=== PATIENT | female | born 1925 | race Caucasian/White ===

== ENCOUNTER 2017-09-04 10:28 | Observation (INO) ==
--- NOTE | 2017-09-04 10:35 | Emergency Department Note ---
Disposition Clinical Impression: Chest pain, Elevated troponin Disposition: Admitted As Inpatient Condition: Good General Adult HPI - General Stated complaint: Left shoulder pain Time Seen by Provider: 09/04/17 10:31 - History of Present Illness Pain Scale: 0 - Related Data Home Medications Medication Instructions Recorded Confirmed Albuterol Sulfate [Ventolin Hfa] 2 puff IH Q4H PRN 09/04/17 09/04/17 Atorvastatin Calcium [Lipitor] 20 mg PO HS 09/04/17 09/04/17 Cholestyramine 1 pack PO BID 09/04/17 09/04/17 Levothyroxine [Synthroid] 75 mcg PO 0630 09/04/17 09/04/17 Lisinopril [Zestril] 10 mg PO DAILY 09/04/17 09/04/17 Metoprolol [Lopressor] 25 mg PO BID 09/04/17 09/04/17 Allergies Allergy/AdvReac Type Severity Reaction Status Date / Time amiodarone Allergy Rash Verified 08/19/17 18:10 Penicillins [PCN] Allergy Rash Verified 08/19/17 18:10 Past Medical History - Past Medical History Medical history: Reports: atrial fibrillation - Social History Smoking Status: Never smoker Smokeless Tobacco Status: No Alcohol use: Reports: none Course Vital Signs Temperature 99.2 F 09/04/17 10:29 Pulse Rate 81 09/04/17 10:29 Respiratory Rate 18 09/04/17 10:29 Blood Pressure 146/70 09/04/17 10:29 O2 Sat by Pulse Oximetry 94 09/04/17 10:29 Temperature 99.0 F 09/05/17 03:14 Pulse Rate 65 09/05/17 03:14 Respiratory Rate 14 09/05/17 03:14 Blood Pressure 133/65 09/05/17 03:14 O2 Sat by Pulse Oximetry 96 09/05/17 03:14 Oxygen Delivery Oxygen Delivery Room Air Medical Decision Making - Lab Data Result diagrams: 09/05/17 04:26 09/05/17 04:26 Lab Results 09/04/17 09/04/17 09/04/17 Range/Units 10:35 10:35 10:35 WBC 17.5 H (4.3-11.1) K/mcL RBC 4.52 (3.82-4.97) M/mcL Hgb 13.3 (11.5-15.4) g/dL Hct 41.9 (35.3-44.9) % MCV 92.7 (83.0-100.0) fL MCH 29.4 (28.0-33.3) pg MCHC 31.7 (31.6-35.5) g/dL RDW 14.1 (11.5-14.5) % Plt Count 218 (140-400) K/mcL MPV 10.3 (9.4-12.4) fL Immature Gran % 2.1 (0-4) % Seg Neutrophils % 80.2 % Lymphocytes % 8.0 % Monocytes % 9.0 % Eosinophils % 0.4 % Basophils % 0.3 % Neutrophils # 14.1 H (1.6-8.9) K/mcL Lymphocytes # 1.4 (0.6-4.6) K/mcL Monocytes # 1.6 H (0.0-1.3) K/mcL Eosinophils # 0.1 (0.0-0.6) K/mcL Basophils # 0.1 (0.0-0.2) K/mcL PT 11.6 (9.4-12.1) Seconds INR 1.1 Sodium 136 (136-145) mEq/L Potassium 3.9 (3.5-5.1) mEq/L Chloride 104 (98-107) mEq/L Carbon Dioxide 27 (23-29) mEq/L BUN 21 (8-23) mg/dL Creatinine 1.30 H (0.60-1.20) mg/dL Est GFR ( Amer) 47 L (> 60) Est GFR (Non-Af Amer) 39 L (> 60) BUN/Creatinine Ratio 16 (6-26) Glucose 134 H (70-105) mg/dL Calculated Osmolality 287 (280-300) Calcium 8.9 (8.6-10.3) mg/dL Total Bilirubin 1.0 (0.3-1.0) mg/dL AST 16 (13-39) Units/L ALT 11 (7-52) Units/L Alkaline Phosphatase 66 (34-104) Units/L Troponin I 0.04 H* (< 0.04) ng/mL Serum Total Protein 5.4 L (6.4-8.9) g/dL Albumin 3.5 (3.5-5.7) g/dL Globulin 1.9 L (2.4-3.5) g/dL Albumin/Globulin Ratio 1.8 (1.1-2.2) Lipase 42 (11-82) Units/L Attestation Statement - Attestation Attestation: I examined this patient and my medical decision-making was reviewed with the Resident Physician. I agree with the documented findings, disposition and treatment plan as described except to the extent set forth below. [id number] time provided The patient presents pain free. She did have a traumatic pain underneath her left posterior scapula which radiated anteriorly. She appears in no acute distress on arrival and was able to ambulate to the treatment area without symptoms. The patient was evaluated in conjunction with the resident physician
[2017-09-04] MEDS ORDERED: Aspirin 325 MG TABLET PO ONE (10:40)
--- NOTE | 2017-09-04 10:43 | Emergency Department Note ---
Disposition Clinical Impression: Elevated troponin Chest pain Qualifiers: Chest pain type: unspecified Qualified Code(s): R07.9 - Chest pain, unspecified Disposition: Admitted As Inpatient Condition: Good Referrals: Shreya Dexter CNP [Primary Care Provider] - Forms: ED Satisfaction Letter Time of Disposition: 11:42 Chest Pain HPI - General Chief Complaint: ED Chest Pain Stated Complaint: Left shoulder pain Time Seen by Provider: 09/04/17 10:31 Source: patient Mode of arrival: ambulatory Limitations: no limitations Vital Signs Reviewed: Yes Nursing Notes Reviewed: Yes - History of Present Illness HPI Narrative: Patient is an 89-year-old female with past medical history of A. fib, currently only taking aspirin 325 mg daily, previous history of colon cancer which is now in remission after chemotherapy and radiation, history of CT about 20 years ago that required one stent, hypertension, hyperlipidemia. She presents today due to left-sided chest and shoulder pain. Denies any falls. She states that it began suddenly around 5 AM, started in her left chest and shoulder and radiated down into her lower chest and around to her back. She also had radiation to her left jaw. This started out as a sharp sensation that progressively got worse over 5 hours. Patient said that the pain was worse with exertion and associated with some mild shortness of breath at that time. Denies any other sweating, nausea, vomiting, fevers, diarrhea, abdominal pain. She says that just prior to arriving by private vehicle, the pain went away. She estimates that she had this discomfort for about 5 hours in duration. She currently rates her pain a 0 out of 10. Severity scale (1-10): 0 - Related Data Home Medications Medication Instructions Recorded Confirmed Albuterol Inhaler 04/24/16 Aspirin 04/24/16 04/24/16 Atorvastatin 04/24/16 Levothyroxine 04/24/16 Lisinopril 04/24/16 Metoprolol Tartrate 04/24/16 Previous Rx's Medication Instructions Recorded Azithromycin [Zithromax] 250 - 500 mg PO DAILY #6 tablet 08/19/17 Guaifenesin [Mucinex] 1,200 mg PO BID PRN #30 tab.er.12h 08/19/17 methylPREDNISolone [Medrol] 4 mg PO DAILY #21 tablet 08/19/17 Allergies Allergy/AdvReac Type Severity Reaction Status Date / Time amiodarone Allergy Rash Verified 08/19/17 18:10 Penicillins [PCN] Allergy Rash Verified 08/19/17 18:10 All systems ED: reviewed and negative except as stated. Constitutional: Denies: fever Cardiovascular: Reports: chest pain. Denies: palpitations Respiratory: Reports: dyspnea. Denies: cough, wheezes Gastrointestinal: Denies: abdominal pain, nausea, vomiting, diarrhea Chest Pain PMH - Past Medical History Medical history: Reports: atrial fibrillation, hyperlipidemia, hypertension, other - Social History Smoking Status: Never smoker Alcohol use: Reports: none Physical Exam - General Limitations: no limitations General appearance: alert, in no apparent distress - Head Head exam: atraumatic, normocephalic, normal inspection - Eye Eye exam: Present: normal appearance, PERRL, EOMI - ENT ENT exam: normal exam, normal oropharynx, mucous membranes moist - Neck Neck exam: Present: normal inspection, full ROM, trachea midline - Chest Chest inspection: Present: normal inspection, symmetric chest wall rise. Absent : tenderness, rash - Respiratory Respiratory exam: Present: normal lung sounds bilaterally. Absent: respiratory distress, wheezes, stridor, accessory muscle use - Cardiovascular Cardiovascular exam: Present: regular rate, normal rhythm, normal heart sounds - Abdominal Exam Abdominal exam: Present: soft, Non-Tender. Absent: tenderness, distention, guarding, rebound, rigidity - Extremities Exam Extremities exam: Present: normal inspection, full ROM. Absent: tenderness, pedal edema - Neurological Exam Neurological exam: Present: alert, oriented X3 - Psychiatric Psychiatric exam: Present: normal affect, normal mood - Skin Skin exam: Present: warm, dry, intact, normal color Course Course Narrative: Patient has high risk factor for ACS. Patient has previous CT with stent placement, hypertension, hyperlipidemia, also has concerning history. Heart score is currently 5 assuming trop is negative. EKG was obtained and shows ST elevation in V1 and V2 with T-wave inversion. This was present on previous EKG on 03/19/2015, however, T wave inversion does appear deeper on this EKG. T wave inversion present in lead 3 as well, this was present on old EKG as well and is unchanged. Will also obtain posterior EKG for further assessment. We will also obtain chest x-ray, basic blood work, troponin level. Even if workup is negative, patient has concerning history and risk factors, will admit for trending troponins and further chest pain workup. 11:41 EKG showed no acute ST changes. Chest x-ray negative for any acute cardiopulmonary process. Troponin elevated 0.04. Patient was reevaluated again , continues to have no chest pain or shortness breath. We discussed admission for further care and trending troponins. She was happy and agreeable with this plan. Patient given aspirin. Not started on heparin at this time. Chest X-Ray 09/04/17 10:35 IMPRESSION: No acute cardiopulmonary process identified. D/ / Isael Washington MD / Isael Washington MD Interpreting Provider: Isael Washington MD Vital Signs Temperature 99.2 F 09/04/17 10:29 Pulse Rate 81 09/04/17 10:29 Respiratory Rate 18 09/04/17 10:29 Blood Pressure 146/70 09/04/17 10:29 O2 Sat by Pulse Oximetry 94 09/04/17 10:29 Temperature 99.2 F 09/04/17 10:35 Pulse Rate 81 09/04/17 10:35 Respiratory Rate 18 09/04/17 10:35 Blood Pressure 146/70 09/04/17 10:35 O2 Sat by Pulse Oximetry 94 09/04/17 10:35 Oxygen Delivery Oxygen Delivery Room Air Chest Pain - MDM Narrative Medical decision making narrative: Patient has high risk factor for ACS. Patient has previous CT with stent placement, hypertension, hyperlipidemia, also has concerning history. Heart score is currently 5 assuming trop is negative. EKG was obtained and shows ST elevation in V1 and V2 with T-wave inversion. This was present on previous EKG on 03/19/2015, however, T wave inversion does appear deeper on this EKG. T wave inversion present in lead 3 as well, this was present on old EKG as well and is unchanged. Will also obtain posterior EKG for further assessment. We will also obtain chest x-ray, basic blood work, troponin level. Even if workup is negative, patient has concerning history and risk factors, will admit for trending troponins and further chest pain workup. 11:41 EKG showed no acute ST changes. Chest x-ray negative for any acute cardiopulmonary process. Troponin elevated 0.04. Patient was reevaluated again , continues to have no chest pain or shortness breath. We discussed admission for further care and trending troponins. She was happy and agreeable with this plan. Patient given aspirin. Not started on heparin at this time. - Medical Records Medical records reviewed: Yes I reviewed the patient's medical records. - Lab Data Lab results reviewed: Yes I reviewed the patient's lab results. Result diagrams: 09/04/17 10:35 09/04/17 10:35 Lab Results 09/04/17 09/04/17 09/04/17 Range/Units 10:35 10:35 10:35 WBC 17.5 H (4.3-11.1) K/mcL RBC 4.52 (3.82-4.97) M/mcL Hgb 13.3 (11.5-15.4) g/dL Hct 41.9 (35.3-44.9) % MCV 92.7 (83.0-100.0) fL MCH 29.4 (28.0-33.3) pg MCHC 31.7 (31.6-35.5) g/dL RDW 14.1 (11.5-14.5) % Plt Count 218 (140-400) K/mcL MPV 10.3 (9.4-12.4) fL Immature Gran % 2.1 (0-4) % Seg Neutrophils % 80.2 % Lymphocytes % 8.0 % Monocytes % 9.0 % Eosinophils % 0.4 % Basophils % 0.3 % Neutrophils # 14.1 H (1.6-8.9) K/mcL Lymphocytes # 1.4 (0.6-4.6) K/mcL Monocytes # 1.6 H (0.0-1.3) K/mcL Eosinophils # 0.1 (0.0-0.6) K/mcL Basophils # 0.1 (0.0-0.2) K/mcL PT 11.6 (9.4-12.1) Seconds INR 1.1 Sodium 136 (136-145) mEq/L Potassium 3.9 (3.5-5.1) mEq/L Chloride 104 (98-107) mEq/L Carbon Dioxide 27 (23-29) mEq/L BUN 21 (8-23) mg/dL Creatinine 1.30 H (0.60-1.20) mg/dL Est GFR ( Amer) 47 L (> 60) Est GFR (Non-Af Amer) 39 L (> 60) BUN/Creatinine Ratio 16 (6-26) Glucose 134 H (70-105) mg/dL Calculated Osmolality 287 (280-300) Calcium 8.9 (8.6-10.3) mg/dL Total Bilirubin 1.0 (0.3-1.0) mg/dL AST 16 (13-39) Units/L ALT 11 (7-52) Units/L Alkaline Phosphatase 66 (34-104) Units/L Troponin I 0.04 H* (< 0.04) ng/mL Serum Total Protein 5.4 L (6.4-8.9) g/dL Albumin 3.5 (3.5-5.7) g/dL Globulin 1.9 L (2.4-3.5) g/dL Albumin/Globulin Ratio 1.8 (1.1-2.2) Lipase 42 (11-82) Units/L - Radiology Data Radiology results reviewed: Yes I reviewed the patient's radiology results. - EKG Data EKG attestation: Yes I reviewed and interpreted this EKG. EKG results narrative: 09/04/2017 at 10:41. Normal sinus rhythm. Rate 73. OH 159. QRS 84. QTC 412. Mild left axis deviation. EKG was obtained and shows ST elevation in V1 and V2 with T-wave inversion. This was present on previous EKG on 03/19/2015, however, T wave inversion does appear deeper on this EKG. T wave inversion present in lead 3 as well, this was present on old EKG as well and is unchanged. EKG #2, posterior EKG. 09/04/2017 at 10:52. Normal sinus rhythm. Rate 73. OH 154. QRS 86. QTC 398. Normal axis. ST elevation in V1, V2 with T-wave inversions, again see above EKG description - appears old on previous EKG Heart Score - Score History: Moderately Suspicious EKG: Normal Age: Greater than 65 Risk Factors: Equal/Greater than 3 risk factor or history of atherosclerotic disease Troponin: Less than normal limit HEART Score Total: 5
[2017-09-04 11:05] LABS: Basophils # 0.1 K/mcL (0.0-0.2); Basophils % 0.3 %; Eosinophils # 0.1 K/mcL (0.0-0.6); Eosinophils % 0.4 %; Hematocrit 41.9 % (35.3-44.9); Hemoglobin 13.3 g/dL (11.5-15.4); Immature Granulocytes % 2.1 % (0-4); Lymphocytes # 1.4 K/mcL (0.6-4.6); Mean Corpuscular HGB Conc 31.7 g/dL (31.6-35.5); Mean Corpuscular Hemoglobin 29.4 pg (28.0-33.3); Mean Corpuscular Volume 92.7 fL (83.0-100.0); Mean Platelet Volume 10.3 fL (9.4-12.4); Monocytes # 1.6 K/mcL (0.0-1.3); Neutrophils # 14.1 K/mcL (1.6-8.9); Platelet Count 218 K/mcL (140-400); Red Blood Count 4.52 M/mcL (3.82-4.97); Red Cell Distribution Width 14.1 % (11.5-14.5); Segmented Neutrophils % 80.2 %
[2017-09-04 11:10] LABS: INR 1.1; Prothrombin Time 11.6 Seconds (9.4-12.1)
[2017-09-04 11:24] LABS: Albumin 3.5 g/dL (3.5-5.7); Albumin/Globulin Ratio 1.8 (1.1-2.2); Calcium 8.9 mg/dL (8.6-10.3); Globulin 1.9 g/dL (2.4-3.5); Potassium 3.9 mEq/L (3.5-5.1); Total Protein 5.4 g/dL (6.4-8.9)
[2017-09-04 11:25] LABS: Troponin I 0.04 ng/mL (< 0.04)
--- NOTE | 2017-09-04 12:09 | Internal Med History&Physical ---
Date of Encounter: 09/04/17 Time of Encounter: 12:01 Internal Medicine - H&P: HPI Chief complaint: chest pain Admitted From: Home Plans for Post Hospital Care: Home History of present illness: Ms. Cruz is a 89 year old female who has history of hypertension, hypothyroidism, CAD s/p stents 20 years ago, presenting emergency room for left shoulder pain. Pain started this morning 5 a.m. when she woke up, located to left shoulder radiating to the epigastric area, upper neck and the whole left chest pressure-like 8 out of 10, constant associated with his dizziness fatigue , she also feel nauseated, denies diaphoresis no palpitation. She arrived ER after 4 baby aspirin chest pain subsided.. Patient had recent pneumonia and a bronchitis was placed on Z-Rohith, then the levofloxacin for 5 days, and she was also placed on oral prednisone for 10 days course. Patient has GERD, her symptoms has been gotten worse. Otherwise patient denies fever or chills no productive cough. WBC 17.5, INR 1.1 creatinine 1.3, troponin 0.04 mildly elevated, negative chest x-ray. #1 chest pain, abnormal EKG but has no changes from previous EKG #2 GERD #3 CAD state opposes stents Past Med Surg Social Fam HX - Past Medical History Medical history: atrial fibrillation, hyperlipidemia, hypertension, other Psychiatric history: no psych history - Social History Smoking Status: Never smoker Smokeless Tobacco Status: No Alcohol use: none Drug use: none Internal Medicine - H&P: Meds Albuterol Sulfate [Ventolin Hfa] 2 puff IH Q4H PRN 09/04/17 [History] Atorvastatin Calcium [Lipitor] 20 mg PO HS 09/04/17 [History] Cholestyramine 1 pack PO BID 09/04/17 [History] Levothyroxine [Synthroid] 75 mcg PO 0630 09/04/17 [History] Lisinopril [Zestril] 10 mg PO DAILY 09/04/17 [History] Metoprolol [Lopressor] 25 mg PO BID 09/04/17 [History] 3 Allergy/AdvReac Type Severity Reaction Status Date / Time amiodarone Allergy Rash Verified 08/19/17 18:10 Penicillins [PCN] Allergy Rash Verified 08/19/17 18:10 All Systems PM: Pertinent findings as documented above in the HPI. All other systems were reviewed and are negative . - Constitutional Vitals: Temp Pulse Resp BP Pulse Ox 99.2 F 77 18 116/59 97 09/04/17 10:35 09/04/17 11:54 09/04/17 11:54 09/04/17 11:54 09/04/17 11:54 General appearance: Present: cooperative, A&O X 3, pleasant, answers questions appropriately Exam: CONSTITUTIONAL: Patient appears as an age appropriate female well developed, in no acute distress. EYES Clear sclerae, bilateral pupils are equal, reactive to light and accommodation. Extraocular movements are intact RESPIRATORY: No accessory muscle use, bilateral clear to auscultation, no wheezing, no crackles/rales. CARDIOVASCULAR: Regular heart rate, normal S1 and S2, no murmurs GASTROINTESTINAL: bowel sounds present, soft, no tenderness. No hepatosplenomegaly. No bilateral CVA tenderness MUSCULOSKELETAL: Joints in normal range of motion, no clubbing, no edema, no cyanosis. Bilateral peripheral pulses 2+ LYMPHATIC no lymphadenopathy in neck, groin and axilla bilaterally, no thyromegaly. NEUROLOGIC: CN II to XII are grossly intact, no focal neurological deficit. Deep tendon reflexes 2+ bilaterally. Normal light touch sensation to upper and lower extremity PSYCHIATRIC: Oriented x3, with good insight, mood is euthymic. No hallucinations or delusions. SKIN: Skin warm and dry, no rashes, no open wound. Internal Med - H&P Results - Labs CBC & Chem 7: 09/04/17 10:35 09/04/17 10:35 Labs: Short CBC 09/04/17 Range/Units 10:35 WBC 17.5 H (4.3-11.1) K/mcL Hgb 13.3 (11.5-15.4) g/dL Hct 41.9 (35.3-44.9) % Plt Count 218 (140-400) K/mcL Neutrophils # 14.1 H (1.6-8.9) K/mcL BMP 09/04/17 10:35 Sodium 136 Potassium 3.9 Chloride 104 Carbon Dioxide 27 BUN 21 Creatinine 1.30 H Glucose 134 H Calcium 8.9 Cardiac Enzymes 09/04/17 Range/Units 10:35 Troponin I 0.04 H* (< 0.04) ng/mL Liver Function 09/04/17 Range/Units 10:35 Total Bilirubin 1.0 (0.3-1.0) mg/dL AST 16 (13-39) Units/L ALT 11 (7-52) Units/L Alkaline Phosphatase 66 (34-104) Units/L Albumin 3.5 (3.5-5.7) g/dL - Impressions ITS Impressions Chest X-Ray 09/04/17 10:35 IMPRESSION: No acute cardiopulmonary process identified. D/ / Isael Washington MD / Isael Washington MD Interpreting Provider: Isael Washington MD - Assessment and plan (1) Chest pain Current Visit: Yes Status: Acute Assessment and plan: Chest pain in setting of CAD state of stents, troponin is elevated. We will follow up troponin every 6, check echocardiogram, Consult ceramics artist Currently patient is chest pain-free no EKG changes. Qualifiers: Chest pain type: unspecified Qualified Code(s): R07.9 - Chest pain, unspecified (2) CAD (coronary artery disease) Current Visit: Yes Status: Chronic Assessment and plan: Patient had stents placed back to 20 years ago, has been follow-up with Dr. Mendoza her ceramics artist. But she has not had any stress test for many years. Echocardiogram in March 2015 showed EF 55% Qualifiers: Coronary Disease-Associated Artery/Lesion type: [place] artery [place] vs. transplanted heart: [place] heart Associated angina: with stable angina Qualified Code(s): I25.118 - Atherosclerotic heart disease of [place] coronary artery with other forms of angina pectoris (3) Hypertension Current Visit: Yes Status: Chronic Assessment and plan: Continue lisinopril and metoprolol Qualifiers: Hypertension type: essential hypertension Qualified Code(s): I10 - Essential (primary) hypertension (4) Hyperlipidemia Current Visit: Yes Status: Chronic Assessment and plan: Continue statin Qualifiers: Hyperlipidemia type: unspecified Qualified Code(s): E78.5 - Hyperlipidemia , unspecified (5) Hypothyroidism Current Visit: Yes Status: Acute Assessment and plan: Continue synthroids Qualifiers: Hypothyroidism type: acquired Qualified Code(s): E03.9 - Hypothyroidism, unspecified (6) GERD (gastroesophageal reflux disease) Current Visit: Yes Status: Chronic Assessment and plan: add proltonix Qualifiers: Esophagitis presence: with esophagitis Qualified Code(s): K21.0 - Gastro- esophageal reflux disease with esophagitis - Time Spent With Patient Total time spent is greater than 50% in coordination of care (as documented) at patient's floor/unit and/or counseling patient: Greater than 35 minutes
[2017-09-04] MEDS ORDERED: Nitroglycerin 0.4 MG TAB.SUBL SL PRN (12:17)
--- NOTE | 2017-09-04 16:10 | Event Note ---
<José Luis Morfin - Last Filed: 09/04/17 16:11> Date of Encounter: 09/04/17 Time of Encounter: 16:05 Alerted by patient's nurse Nighat RN the patient's family had brought patient' s living will and resuscitation paperwork to the hospital which states patient wishes to be DNR CC. Patient's son Smith is POA but not present. Pts. nurse reports that pt. is A&O and confirms that she wishes to be DNRCC. Pts. resuscitation status changed at 16:08. <Mayi Hahn - Last Filed: 09/04/17 18:28> Date of Encounter: 09/04/17 I went to the patient room, her daughter is in the room, discussed about her CODE STATUS. And a living will was reviewed Patient wishes to be resuscitated at this point. Both her daughter and the patient wants to to be full code. Patient does not have resuscitation paperwork. Only living will and POA paper
[2017-09-05 05:17] LABS: Basophils # 0.1 K/mcL (0.0-0.2); Basophils % 0.3 %; Eosinophils # 0.1 K/mcL (0.0-0.6); Eosinophils % 0.8 %; Hematocrit 38.5 % (35.3-44.9); Hemoglobin 12.2 g/dL (11.5-15.4); Immature Granulocytes % 2.4 % (0-4); Lymphocytes # 2.1 K/mcL (0.6-4.6); Lymphocytes % 14.8 %; Mean Corpuscular HGB Conc 31.7 g/dL (31.6-35.5); Mean Corpuscular Hemoglobin 29.3 pg (28.0-33.3); Mean Corpuscular Volume 92.5 fL (83.0-100.0); Mean Platelet Volume 10.9 fL (9.4-12.4); Monocytes # 1.6 K/mcL (0.0-1.3); Monocytes % 11.4 %; Neutrophils # 10.1 K/mcL (1.6-8.9); Nucleated Red Blood Cells 0.2 /100 WBC (0); Platelet Count 187 K/mcL (140-400); Red Blood Count 4.16 M/mcL (3.82-4.97); Red Cell Distribution Width 14.2 % (11.5-14.5); Segmented Neutrophils % 70.3 %
[2017-09-05 05:25] LABS: INR 1.1; Prothrombin Time 12.3 Seconds (9.4-12.1)
[2017-09-05 05:38] LABS: Albumin 3.1 g/dL (3.5-5.7); Albumin/Globulin Ratio 1.7 (1.1-2.2); Calcium 8.7 mg/dL (8.6-10.3); Globulin 1.8 g/dL (2.4-3.5); Total Protein 4.9 g/dL (6.4-8.9)
[2017-09-05] MEDS: Aspirin 81 MG TAB.CHEW PO SCH (08:12)
--- NOTE | 2017-09-05 10:12 | Internal Med Progress Note ---
Date of Encounter: 09/05/17 Time of Encounter: 10:09 - Assessment and plan (1) Chest pain Current Visit: Yes Status: Acute Qualifiers: Chest pain type: unspecified Qualified Code(s): R07.9 - Chest pain, unspecified (2) Hypothyroidism Current Visit: Yes Status: Acute Qualifiers: Hypothyroidism type: acquired Qualified Code(s): E03.9 - Hypothyroidism, unspecified (3) CAD (coronary artery disease) Current Visit: Yes Status: Chronic Qualifiers: Coronary Disease-Associated Artery/Lesion type: [place] artery [place] vs. transplanted heart: [place] heart Associated angina: with stable angina Qualified Code(s): I25.118 - Atherosclerotic heart disease of [place] coronary artery with other forms of angina pectoris (4) GERD (gastroesophageal reflux disease) Current Visit: Yes Status: Chronic Qualifiers: Esophagitis presence: with esophagitis Qualified Code(s): K21.0 - Gastro- esophageal reflux disease with esophagitis - Time Spent With Patient Total time spent is greater than 50% in coordination of care (as documented) at patient's floor/unit and/or counseling patient: - Subjective Interval history: Patient was seen and examined at bedside, currently denies any CP SOB or palpitations. I reveiwed treatment plan with patient and family Verbalize understanding - Constitutional Vitals: Temp Pulse Resp BP Pulse Ox 98.5 F 73 16 146/81 97 09/05/17 07:27 09/05/17 07:27 09/05/17 07:27 09/05/17 07:27 09/05/17 07:27 General appearance: Present: cooperative, A&O X 3, pleasant, answers questions appropriately - Head Head exam: Present: atraumatic, normocephalic - Eye Eye exam: Present: PERRL, conjuntiva pink, sclera anicteric Pupils: Present: PERRL - Neck Neck exam general surgery: Present: supple, trachea midline. Absent: lymphadenopathy - Respiratory Respiratory exam: Present: CTAB. Absent: accessory muscle use, rales, rhonchi, wheezes - Cardiovascular Cardiovascular exam: Present: RRR, +S1, +S2. Absent: diastolic murmur, gallop, rubs, systolic murmur - GI/Abdominal GI/Abdominal exam: Present: normal bowel sounds, soft, no peritoneal signs. Absent: distended, tenderness - Extremities Exam Extremities exam: Present: warm, radial pulses palpable and symmetrical. Absent : calf tenderness, cyanotic, pedal edema - Neurological Exam Neurological exam: Present: CN II-XII intact, oriented X3, no focal deficits. Absent: pronater drift, facial droop, speech deficit - Skin Skin exam: Present: dry, intact Internal Medicine: Result - Labs CBC & Chem 7: 09/05/17 04:26 09/05/17 04:26 Labs: Short CBC 09/05/17 Range/Units 04:26 WBC 14.4 H (4.3-11.1) K/mcL Hgb 12.2 (11.5-15.4) g/dL Hct 38.5 (35.3-44.9) % Plt Count 187 (140-400) K/mcL Neutrophils # 10.1 H (1.6-8.9) K/mcL BMP 09/05/17 04:26 Sodium 139 Potassium 4.0 Chloride 106 Carbon Dioxide 27 BUN 20 Creatinine 1.41 H Glucose 111 H Calcium 8.7 Cardiac Enzymes 09/04/17 09/04/17 09/05/17 Range/Units 16:21 22:43 04:26 Troponin I < 0.03 < 0.03 < 0.03 (< 0.04) ng/mL Liver Function 09/05/17 Range/Units 04:26 Total Bilirubin 1.0 (0.3-1.0) mg/dL AST 15 (13-39) Units/L ALT 8 (7-52) Units/L Alkaline Phosphatase 54 (34-104) Units/L Albumin 3.1 L (3.5-5.7) g/dL - ABG Interpretation ABG results: PT/INR, D-dimer PT 12.3 Seconds (9.4-12.1) H 09/05/17 04:26 Consult Discharge Plan - Plan Referrals: Isacc,Shreya Moore CNP [Primary Care Provider] -
--- NOTE | 2017-09-05 12:46 | Internal Med Progress Note ---
Date of Encounter: 09/05/17 Time of Encounter: 12:34 - Assessment and plan (1) Chest pain Current Visit: Yes Status: Acute Assessment and plan: 1 Chest pain in setting CADhx of stents- intial trop slightly elevated - she does have kidney disease which may be contributing to this rise- rest of trop are normal- No chest pain at this time echo - awaiting results- No EKG changes Consult cardiology as needed - continue cardiac monitoring Qualifiers: Chest pain type: unspecified Qualified Code(s): R07.9 - Chest pain, unspecified (2) Hypothyroidism Current Visit: Yes Status: Acute Assessment and plan: cont synthroid Qualifiers: Hypothyroidism type: acquired Qualified Code(s): E03.9 - Hypothyroidism, unspecified (3) CAD (coronary artery disease) Current Visit: Yes Status: Chronic Assessment and plan: Stents placed proximal with 20 years ago she follows with Dr. Mendoza. Has not had a stress test many years. Echo in March 2015 showed EF of 55% continue with aspirin and statin beta mirian nitroglycerin as needed for chest pain Qualifiers: Coronary Disease-Associated Artery/Lesion type: [place] artery [place] vs. transplanted heart: [place] heart Associated angina: with stable angina Qualified Code(s): I25.118 - Atherosclerotic heart disease of [place] coronary artery with other forms of angina pectoris (4) GERD (gastroesophageal reflux disease) Current Visit: Yes Status: Chronic Assessment and plan: Continue Prilosec Qualifiers: Esophagitis presence: with esophagitis Qualified Code(s): K21.0 - Gastro- esophageal reflux disease with esophagitis (5) CKD (chronic kidney disease) stage 3, GFR 30-59 ml/min Current Visit: Yes Status: Acute Assessment and plan: 1 creatinine 1.3 on admission 1.41 today-appears to be around 1.1 to continue the air GFR was 46 at the beginning of the year 35 today. We will continue to monitor Avoid nephrotoxins- We will give gentle IV hydration overnight Monitor intake output daily weights Check urine (6) Leukocytosis Current Visit: Yes Status: Acute Assessment and plan: 1 suspect this may be related to recent steroid use. Was recently treated for bronchitis. Chest x-ray is negative we will obtain urinalysis Qualifiers: Leukocytosis type: unspecified Qualified Code(s): D72.829 - Elevated white blood cell count, unspecified (7) Elevated troponin Current Visit: Yes Status: Acute Assessment and plan: Suspect this is related to CK D-only slight elevation -rest of trend are normal Consult cardiology as needed (8) DVT prophylaxis Current Visit: Yes Status: Acute Assessment and plan: Subcutaneous heparin - Time Spent With Patient Total time spent is greater than 50% in coordination of care (as documented) at patient's floor/unit and/or counseling patient: - Subjective Interval history: Patient was seen and examined at bedside, currently denies any CP SOB or palpitations. I reveiwed treatment plan with patient and family Verbalize understanding - Constitutional Vitals: Temp Pulse Resp BP Pulse Ox 98.5 F 73 16 146/81 97 09/05/17 07:27 09/05/17 07:27 09/05/17 07:27 09/05/17 07:27 09/05/17 07:27 General appearance: Present: cooperative, A&O X 3, pleasant, answers questions appropriately - Head Head exam: Present: atraumatic, normocephalic - Eye Eye exam: Present: PERRL, conjuntiva pink, sclera anicteric Pupils: Present: PERRL - Neck Neck exam general surgery: Present: supple, trachea midline. Absent: lymphadenopathy - Respiratory Respiratory exam: Present: CTAB. Absent: accessory muscle use, rales, rhonchi, wheezes - Cardiovascular Cardiovascular exam: Present: RRR, +S1, +S2. Absent: diastolic murmur, gallop, rubs, systolic murmur - GI/Abdominal GI/Abdominal exam: Present: normal bowel sounds, soft, no peritoneal signs. Absent: distended, tenderness - Extremities Exam Extremities exam: Present: warm, radial pulses palpable and symmetrical. Absent : calf tenderness, cyanotic, pedal edema - Neurological Exam Neurological exam: Present: CN II-XII intact, oriented X3, no focal deficits. Absent: pronater drift, facial droop, speech deficit - Skin Skin exam: Present: dry, intact Internal Medicine: Result - Labs CBC & Chem 7: 09/05/17 04:26 09/05/17 04:26 Labs: Short CBC 09/05/17 Range/Units 04:26 WBC 14.4 H (4.3-11.1) K/mcL Hgb 12.2 (11.5-15.4) g/dL Hct 38.5 (35.3-44.9) % Plt Count 187 (140-400) K/mcL Neutrophils # 10.1 H (1.6-8.9) K/mcL BMP 09/05/17 04:26 Sodium 139 Potassium 4.0 Chloride 106 Carbon Dioxide 27 BUN 20 Creatinine 1.41 H Glucose 111 H Calcium 8.7 Cardiac Enzymes 09/04/17 09/04/17 09/05/17 Range/Units 16:21 22:43 04:26 Troponin I < 0.03 < 0.03 < 0.03 (< 0.04) ng/mL Liver Function 09/05/17 Range/Units 04:26 Total Bilirubin 1.0 (0.3-1.0) mg/dL AST 15 (13-39) Units/L ALT 8 (7-52) Units/L Alkaline Phosphatase 54 (34-104) Units/L Albumin 3.1 L (3.5-5.7) g/dL - ABG Interpretation ABG results: PT/INR, D-dimer PT 12.3 Seconds (9.4-12.1) H 09/05/17 04:26 Consult Discharge Plan - Plan Referrals: Shreya Dexter, PHARMACOLOGIST [Primary Care Provider] -
[2017-09-05] MEDS ORDERED: 0.9 % Sodium Chloride 1,000 ML IVC SCH (13:00)
[2017-09-05] MEDS: *HR* Heparin 5,000 UNIT/ML VIAL SQ SCH (17:08)
[2017-09-05 20:29] LABS: Bilirubin,Urine Negative (Negative); Blood,Urine Moderate (Negative); Clarity,Urine Clear (Clear); Color,Urine Yellow (Yellow); Glucose,Urine (UA) Normal (Normal); Ketones,Urine Negative (Negative); Leukocyte Esterase,Urine Negative (Negative); Nitrite,Urine Negative (Negative); Protein,Urine Negative (Neg-Trace); Specific Gravity,Urine 1.018 (1.010-1.025); Urobilinogen,Urine Normal (Normal)
[2017-09-05 20:31] LABS: Bacteria,Urine None Seen per hpf (None-Few); Hyaline Casts,Urine None Seen per lpf (None-Few); Squamous Epithelial Cell,Urine Few per lpf (None-Few); WBC,Urine 0-3 per hpf (0-3)
[2017-09-06] MEDS: *HR* Heparin 5,000 UNIT/ML VIAL SQ SCH (05:17)
[2017-09-06 05:28] LABS: Basophils % 0.3 %; Eosinophils # 0.2 K/mcL (0.0-0.6); Eosinophils % 1.5 %; Hematocrit 36.2 % (35.3-44.9); Hemoglobin 11.6 g/dL (11.5-15.4); Immature Granulocytes % 2.2 % (0-4); Mean Corpuscular Hemoglobin 29.8 pg (28.0-33.3); Mean Corpuscular Volume 93.1 fL (83.0-100.0); Mean Platelet Volume 11.1 fL (9.4-12.4); Monocytes # 1.4 K/mcL (0.0-1.3); Monocytes % 12.3 %; Neutrophils # 7.7 K/mcL (1.6-8.9); Platelet Count 182 K/mcL (140-400); Red Blood Count 3.89 M/mcL (3.82-4.97); Red Cell Distribution Width 14.3 % (11.5-14.5); Segmented Neutrophils % 66.7 %
[2017-09-06 05:41] LABS: Calcium 8.5 mg/dL (8.6-10.3); Potassium 3.6 mEq/L (3.5-5.1)
[2017-09-06] MEDS: Aspirin 81 MG TAB.CHEW PO SCH (10:59)
[2017-09-06] MEDS ORDERED: Naloxone 0.4 MG/ML INJ IVP PRN (11:53)
[2017-09-06] MEDS ORDERED: *HR* HYDROcodone/Acet 5/325 mg TABLET PO PRN (11:53)
[2017-09-06] MEDS ORDERED: Acetaminophen 325 MG TABLET PO PRN (11:53)
[2017-09-06 12:05] VITALS: BP 112/62
--- NOTE | 2017-09-06 12:29 | Discharge Summary ---
- NOTES TO OUTPATIENT PROVIDER Notes to Outpatient Provider: Patient is follow up with nephrology later this week, monitor chem7 creatinine , cardioogy suggest outpatient stress. Orders not resulted at time of discharge: Pending orders 09/05/17 06:00 ECG 12 lead ECG [ECG] AM 0600 Date of Encounter: 09/06/17 Time of Encounter: 12:27 - Discharge Diagnosis (1) Chest pain Priority: Primary Status: Acute Qualifiers: Chest pain type: unspecified Qualified Code(s): R07.9 - Chest pain, unspecified (2) Hypothyroidism Priority: Secondary Status: Acute Qualifiers: Hypothyroidism type: acquired Qualified Code(s): E03.9 - Hypothyroidism, unspecified (3) CAD (coronary artery disease) Priority: Secondary Status: Chronic Qualifiers: Coronary Disease-Associated Artery/Lesion type: [place] artery [place] vs. transplanted heart: [place] heart Associated angina: with stable angina Qualified Code(s): I25.118 - Atherosclerotic heart disease of [place] coronary artery with other forms of angina pectoris (4) GERD (gastroesophageal reflux disease) Priority: Secondary Status: Chronic Qualifiers: Esophagitis presence: with esophagitis Qualified Code(s): K21.0 - Gastro- esophageal reflux disease with esophagitis (5) CKD (chronic kidney disease) stage 3, GFR 30-59 ml/min Priority: Primary Status: Acute (6) Leukocytosis Priority: Secondary Status: Acute Qualifiers: Leukocytosis type: unspecified Qualified Code(s): D72.829 - Elevated white blood cell count, unspecified (7) Elevated troponin Priority: Secondary Status: Acute Hospital course: Ms. Cruz is a 89 year old female past [place] history of hypertension hypothyroid CAD stent placement 20 years ago patient initially presented to the emergency department after experiencing 8 out of 10 chest pressure that woke her from sleep. Pressure radiating to left shoulder epigastric area and neck. The pain was constant she had associated symptoms of dizziness 50 and nausea. Patient was recently treated for pneumonia bronchitis was placed on Z-Rohith Levaquin as well as prednisone for 10 days. Lab work was obtained and initial troponin was 0.04 rest of troponins were flat adynamic. Suspected initial troponin elevation secondary to CK D. Echo was completed which did show EF of 55-60% normal LV chamber size wall thickness and function mild left ventricular diastolic dysfunction normal right ventricular structure and function mild tricuspid regurgitation no pulmonary hypertension. Chest x-ray with no acute process. Noted that patient's creatinine was elevated-appears that she does have CK D3 however patient is unaware has not officially been diagnosed. She was given IV fluids overnight and creatinine did improve. I did review this case with cardiology nurse practitioner Dejah Stein advised cardiac stress test however patient should be advised that with elevated renal function cardiac catheterization will not be advisable at this time cardiac stress which could be done as outpatient. I also spoke with Dr. Urrutia with nephrology concerning elevation in creatinine advised that was getting a renal ultrasound. He suggested outpatient follow-up with him this week concerning CK D. Appointment has been made per nursing staff. I did discuss with patient and family, results of echo and lab work and the recommendations of both cardiology and nephrology at this time but family and patient agreed to outpatient stress test. Patient did voice that she is not sure she would even undergo a cardiac catheterization if it was warranted. Also discussed follow-up with nephrology which they verbalized understanding. I answered patient's and family questions to the best of my ability. Advised patient to follow-up with primary care and nephrology patient is hemodynamically stable with no chest pain or shortness of breath and is ready for discharge. - Time Spent with Patient Total time spent providing and/or coordinating discharge services: - Discharge Medications Home Medications: Albuterol Sulfate [Ventolin Hfa] 2 puff IH Q4H PRN 09/04/17 [History] Atorvastatin Calcium [Lipitor] 20 mg PO HS 09/04/17 [History] Cholestyramine 1 pack PO BID 09/04/17 [History] Levothyroxine [Synthroid] 75 mcg PO 0630 09/04/17 [History] Lisinopril [Zestril] 10 mg PO DAILY 09/04/17 [History] Metoprolol [Lopressor] 25 mg PO BID 09/04/17 [History] Allergies/Adverse Reactions: 3 Allergy/AdvReac Type Severity Reaction Status Date / Time amiodarone Allergy Rash Verified 08/19/17 18:10 Penicillins [PCN] Allergy Rash Verified 08/19/17 18:10 Date of admission: 09/04/17 12:07 Primary care physician: Shreya Dexter, [facility] Discharging clinician: Eulalia Cortez Anticipated date of discharge: 04/30/18 - Constitutional Vitals: Temp Pulse Resp BP Pulse Ox 98.5 F 67 14 112/62 97 09/06/17 12:03 09/06/17 12:03 09/06/17 12:03 09/06/17 12:03 09/06/17 12:03 General appearance: Present: cooperative, A&O X 3, pleasant, answers questions appropriately - Head Head exam: Present: atraumatic, normocephalic - Eye Eye exam: Present: PERRL, conjuntiva pink, sclera anicteric Pupils: Present: PERRL - Neck Neck exam general surgery: Present: supple, trachea midline. Absent: lymphadenopathy - Respiratory Respiratory exam: Present: CTAB. Absent: accessory muscle use, rales, rhonchi, wheezes - Cardiovascular Cardiovascular exam: Present: RRR, +S1, +S2. Absent: diastolic murmur, gallop, rubs, systolic murmur - GI/Abdominal GI/Abdominal exam: Present: normal bowel sounds, soft, no peritoneal signs. Absent: distended, tenderness - Extremities Exam Extremities exam: Present: warm, radial pulses palpable and symmetrical. Absent : calf tenderness, cyanotic, pedal edema - Neurological Exam Neurological exam: Present: CN II-XII intact, oriented X3, no focal deficits. Absent: pronater drift, facial droop, speech deficit - Skin Skin exam: Present: dry, intact - Patient Status Disposition: Home, Self-Care Condition: Good Functional capacity at discharge: independent ambulation Overall status at discharge: patient is back to baseline - Discharge Instructions Follow Up With: Paras Urrutia MD [Partnered Physician] - 09/07/17 1:30 pm Dexter,Shreya Moore CNP [Primary Care Provider] - 09/08/17 9:30 am - Diet and Activity Activity: increase activity as tolerated Diet: low fat, low cholesterol
--- NOTE | 2017-09-06 16:45 | Electrocardiograph Report ---
[place] [id number] Test Date: 2017-09-04 Pat Name: Keyona Cruz Department: 103 Room: 3B35 Gender: F [employer]inist Mate: : [id number] Requested By: Donovan Rajput Order Number: [id number] Reading MD: Magali Arnold Measurements Intervals Wallace Rate: 73 P: 78 PA: 159 QRS: -1 QRSD: 85 T: -1 QT: 385 QTc: 412 Interpretive Statements SINUS RHYTHM POSSIBLE RIGHT VENTRICULAR CONDUCTION DELAY [RSR (QR) IN V1/V2] Electronically Signed On 09-06-2017 16:43:03 EDT by Magali Arnold
== END 2017-09-06 13:44 | disposition home or self-care (01) ==
LOC: 3BNU 10:28 → EMEROO 10:28 → 3BNU 12:38
PROVIDERS: ADMIT Registered Nurse; ATTEND Registered Nurse